=== PATIENT | male | born 1995 | race Caucasian/White ===

== ENCOUNTER 2017-07-06 17:06 | Emergency (ER) | payer SELFPAY ==
[~2017-07-06] VITALS: Wt 90.7 kg
[2017-07-06] MEDS ORDERED: ROBITUSSIN DM 105 ML PO (18:53)
[2017-07-06] MEDS ORDERED: PREDNISONE20 M1 PO (18:53)
== END 2017-07-06 18:56 | disposition home or self-care (01) ==
LOC: ED 17:06
DX: J10.1 Influenza due to other identified influenza virus with other respiratory manifestations (principal); F17.200 Nicotine dependence, unspecified, uncomplicated